=== PATIENT | female | born 1970 | race Caucasian/White ===

== ENCOUNTER 2017-08-09 19:01 | Emergency (ER) | payer OTHER ==
[~2017-08-09] VITALS: Ht 157.5 cm; Wt 88.0 kg
[2017-08-09 19:16] VITALS: TEMP 36.7; Ht 157.5 cm; Wt 88.0 kg
[2017-08-09] MEDS ORDERED: FLUT0.15 NAE (20:02)
[2017-08-09] MEDS ORDERED: CETI10TA84 PO (20:02)
[2017-08-09] MEDS ORDERED: IBUP-1050 PO (20:02)
[2017-08-09] MEDS ORDERED: DIPH25CA65 PO (20:02)
--- NOTE | 2017-08-09 20:03 | DIAGNOSTIC IMAGING REPORT ---
RIGHT ANKLE 3 VIEWS CLINICAL HISTORY: Recent fall. Right ankle pain. FINDINGS: 3 views the right ankle are obtained. No prior studies are available for comparison at the time of dictation. The skeletal structures are osteopenic. No acute fracture is identified. The distal fibula is surgically absent, and numerous screw tracts are seen in the fibular shaft. There has been fusion at the ankle joint, with an intramedullary nail extending from the distal tibial shaft to the base of the calcaneus with near-complete bony fusion throughout. Numerous cortical lag screw transfix the nail. Hardware appears intact. There is chronic posterior mild deformity of the medial malleolus which is transfixed by a cortical lag screw. Mild soft tissue swelling is seen throughout the right lower extremity. IMPRESSION: 1. There is no radiographic evidence of acute right ankle fracture. 2. Osteopenia with extensive chronic posttraumatic and postoperative changes as above. 3. Mild soft tissue swelling is seen throughout the imaged right lower extremity. Electronically signed by: Charles Beavers M.D. 08/09/2017 8:01 PM Dictated Date/Time: 08/09/2017 7:59 PM
[2017-08-09] MEDS ORDERED: HYDR-5688 PO (20:57)
--- NOTE | 2017-08-09 20:58 | EMERGENCY ROOM VISIT NOTE ---
History First contact with patient: 19:29 Chief Complaint: ANKLE PAIN Stated Complaint: PROBLEMS WITH RIGHT ANKLE History of Present Illness The patient is a 46 year old female who presents to the Emergency Room with complaints of right ankle pain. The patient reports that she has had right ankle pain for the past 1 day. She states she has a history of fusion of this ankle after a surgery several years ago. She reports that she fell down a few stairs yesterday and has now had pain in the ankle since then. She states that it is numb in certain spots. The pain is along the inside of the ankle. She states that she now has a sharp pain rated a 9/10. Pain is worse with weightbearing or movement of the ankle. She denies any other injuries. She has not taken any medication for her pain. Review of Systems A complete 10 point review of systems was reviewed with the patient with pertinent positives and negatives as per history of present illness. All else were negative. Past Medical/Surgical History Ankle surgery Social History Smoking Status: Never Smoker Housing Status: lives with family Current/Historical Medications Scheduled Cetirizine (Zyrtec), 10 MG PO DAILY Diphenhydramine Hcl (Benadryl Allergy), 2 CAP PO PRN UD Scheduled PRN Fluticasone Propionate (Nasal) (Flonase Allergy Relief), 2 SPRAYS STEPHANIE DAILY PRN for PRN Hydrocodone/Acetaminophen 5MG/325MG ([place] 5MG/325MG), 1-2 TABLET PO Q4H PRN for Pain Ibuprofen (Advil), 400-600 MG PO Q6H PRN for Pain Physical Exam Vital Signs Date Time Temp Pulse Resp B/P (MAP) Pulse Ox O2 Delivery O2 Flow Rate FiO2 08/09/17 21:07 65 18 156/104 98 08/09/17 19:16 36.7 83 20 129/86 98 Room Air Physical Exam VITALS: Vitals are noted on the nurse's note and reviewed by myself. Vital signs stable. GENERAL: This is a 46-year-old female, in no acute distress, nondiaphoretic, well-developed well-nourished. SKIN: The skin was without rashes, erythema, edema, or bruising. MUSCULOSKELETAL: No obvious deformity of the right ankle. There is tenderness to palpation along the medial aspect of the ankle. Full range of motion. No tenderness of the foot or proximal tibia/fibula. Dorsalis pedis pulse 2+. Capillary refill within 2 seconds. NEURO: Patient was alert and oriented to person place and time. Medical Decision & Procedures ER Provider Diagnostic Interpretation: RIGHT ANKLE 3 VIEWS CLINICAL HISTORY: Recent fall. Right ankle pain. FINDINGS: 3 views the right ankle are obtained. No prior studies are available for comparison at the time of dictation. The skeletal structures are osteopenic. No acute fracture is identified. The distal fibula is surgically absent, and numerous screw tracts are seen in the fibular shaft. There has been fusion at the ankle joint, with an intramedullary nail extending from the distal tibial shaft to the base of the calcaneus with near-complete bony fusion throughout. Numerous cortical lag screw transfix the nail. Hardware appears intact. There is chronic posterior mild deformity of the medial malleolus which is transfixed by a cortical lag screw. Mild soft tissue swelling is seen throughout the right lower extremity. IMPRESSION: 1. There is no radiographic evidence of acute right ankle fracture. 2. Osteopenia with extensive chronic posttraumatic and postoperative changes as above. 3. Mild soft tissue swelling is seen throughout the imaged right lower extremity. Medications Administered Medications (Trade) Dose Ordered Sig/Sarah Route Start Time Stop Time Status Last Admin Dose Admin Acetaminophen/ Hydrocodone Bitart ([place] 5/325mg Home Pack) 1 homepack UD ONCE PO 08/09/17 21:15 08/09/17 21:16 DC 08/09/17 21:11 1 HOMEPACK Medical Decision Differential diagnosis includes contusion, sprain, fracture, among others. The patient was evaluated as above. She presents with right ankle pain. She did sustain a fall yesterday and now has pain in the area where her previous surgery was. Patient was advised to follow-up with her surgeon for further evaluation. She was given a home pack and small prescription for [place] for pain. She verbalized understanding of my assessment and treatment plan and was discharged home in good condition. [place] Drug Monitoring Program Search Results: patient reviewed within database, no issues identified Medication Reconcilliation Current Medication List: was personally reviewed by me Blood Pressure Screening Patient's blood pressure: Elevated blood pressure Blood pressure disposition: Elevated BP felt to be situational Impression Primary Impression: Right ankle pain Departure Information Dispostion Home / Self-Care Condition GOOD Prescriptions Hydrocodone/Acetaminophen 5MG/325MG ([place] 5MG/325MG) Tab 1-2 TABLET PO Q4H Y for Pain, #8 TAB For Initial Treatment Prov: Lilly Mosqueda PA-C 08/09/17 Referrals No Doctor, Assigned (PCP) Obinna Millan D.O. Patient Instructions My [facility] Additional Instructions You have been treated in the Emergency Department for ankle pain. You have been prescribed [place] to be used for pain control. This is a narcotic medication. You cannot drive or consume alcohol while on this medicine. This medicine should only be used for pain that cannot be controlled with over-the- counter pain medicines. For pain control, you can use the following [id number] medicines (if >12 yo): - Regular strength (325mg/tab) Tylenol (acetaminophen) 2 tabs every 4-6 hours as needed. Do not exceed 12 tablets in a 24 hour period. Avoid taking more than 4 grams (4000 mg) of Tylenol per day. This includes any other sources of acetaminophen you may take on a regular basis. - Regular strength (200 mg/tab) Advil (ibuprofen) 1-2 tabs every 4-6 hours as needed. Do not exceed a dose of 3200 mg per day. If this is a recent injury (<24 hrs), ice can be applied to the area of pain for the first 3 days to help decrease pain and inflammation. You have been provided the number for an Orthopaedic Surgeon. You should call this number as soon as possible to establish a follow-up visit from today's Emergency Department visit. Return to the Emergency Department if your current symptoms worsen despite treatment course outlined above, or if you develop any of the following symptoms : intractable pain despite aforementioned treatment course or new onset of numbness or tingling of the foot. Problem Qualifiers Primary Impression: Right ankle pain Chronicity: acute Qualified Codes: M25.571 - Pain in right ankle and joints of right foot
[2017-08-09 21:07] VITALS: BP 156/104; PULSE 65; O2SAT 98
[2017-08-09] MEDS ORDERED: NORCO 5/325MG HOME PACK PO ONE (21:15)
[2017-08-10] MEDS ORDERED: HYDR-5688 PO (15:36)
== END 2017-08-09 21:08 | disposition home or self-care (01) ==
LOC: C.EDB 19:02 → C.EDD 21:08
DX: M25.571 Pain in right ankle and joints of right foot (principal); Z98.1 Arthrodesis status; W10.9XXA Fall (on) (from) unspecified stairs and steps, initial encounter